=== PATIENT | male | born 1940 | race Caucasian/White ===

== ENCOUNTER → 2018-02-20 09:45 | Outpatient (CLI) | payer MEDICARE, OTHER, SELFPAY ==
--- NOTE | 2018-02-20 | DI.US.S_ITS ---
PROCEDURE: US THYROID INDICATIONS: disorder of thyroid TECHNIQUE: Real-time scanning was performed of the thyroid gland, with image documentation. COMPARISON: None. FINDINGS: Right: Thyroid lobe measures 6.1 x 3.7 x 4.5 cm, and is homogeneous in echotexture. Left: Thyroid lobe measures 4.0 x 1.8 x 1.6 cm, and is homogenous in echotexture. Isthmus: 1.1 mm thick. Nodule number: One Location: Right mid/inferior lobe Size: 29 x 38 x 40 mm Composition: Solid Echogenicity: Hypoechoic Shape: wider than tall. Margins: Smooth Echogenic foci: Macrocalcifications Total points: 5 ACR TI-RADS category: 4 Nodule number: 2 Location: Mid left lobe Size: 8 x 7 x 10 mm Composition: Solid Echogenicity: Isoechoic Shape: wider than tall. Margins: Smooth Echogenic foci: Punctate Total points: 5 ACR TI-RADS category: 4 IMPRESSION: 1. Overall appearance of enlarged heterogeneous thyroid which can be seen with goiter. 2. Focal lesions are identified in the right and left lobes as above. Both are TI-RADS 5. No priors are available for comparison. Recommend interval followup as below. ACR TI-RADS definitions and recommendations: TI-RADS 1 (benign): 0 points. FNA not needed. TI-RADS 2 (not suspicious): 2 points. FNA not needed. TI-RADS 3 (mildly suspicious): 3 points. * FNA if 2.5 cm or larger, follow up if 1.5 cm or larger (at 1, 3, and 5 years). TI-RADS 4 (moderately suspicious): 4-6 points. * FNA if 1.5 cm or larger, follow up if 1 cm or larger (at 1, 2, 3, and 5 years). TI-RADS 5 (highly suspicious): 7 points or more. * FNA if 1 cm or larger, follow up if 0.5 cm or larger (every year for 5 years). Dictated by: Melissa Yin M.D. on 02/20/2018 at 13:47 Approved by: Melissa Yin M.D. on 02/20/2018 at 13:51
== END ==
PROVIDERS: PCP Physician Assistant; Visit Provider Physician Assistant
DX: E04.2 Nontoxic multinodular goiter (principal)
CPT/HCPCS: 76536

== ENCOUNTER → 2018-03-01 13:35 | Outpatient (CLI) | payer MEDICARE, OTHER, SELFPAY ==
--- NOTE | 2018-03-01 | DI.US.S_ITS ---
PROCEDURE: US FINE NEEDLE ASPIRATION INDICATIONS: DISORDER OF THYROID TECHNIQUE: The indications, alternatives, benefits, risks, and complications of the procedure were explained to the patient. Written informed consent was obtained and placed in the chart. The thyroid region was examined sonographically and a site was chosen for ultrasound guided percutaneous sampling. The skin was prepared and draped in the usual fashion, and anesthetized with 1% lidocaine infiltrated from the skin down to the thyroid gland. Multiple passes were then performed, with contents emptied into an appropriate pathology specimen container. A bandage was applied to the area of access at completion of the study. COMPARISON: None. FINDINGS: The right lobe nodule was selected for FNA sampling. The small, posterior left lobe nodule is problematic by location and is borderline for sampling criteria. Location(s) of lesion(s) sampled: Right lobe nodule Alva: Initially 6 passes with 25 gauge needles and one 22 gauge needle with syringe aspiration were performed. Cellular clusters were considered inadequate therefore an additional 5 passes with 25 gauge needles were submitted. These were also reported as inadequate by the lab personnel therefore a 20 gauge Temno core sample was obtained from the right lobe nodule. Number of passes: 11 with 25 gauge needles; one with 22 gauge needle and syringe aspiration; one with 20 gauge Temno core sampling Medications: 1% lidocaine for local anaesthesia. Complications: None. IMPRESSION: Presumed successful ultrasound-guided thyroid nodule fine needle aspiration and core sampling, with histopathology results pending. Please see chart below for management recommendations based on cytology results. [facility] ReportingRecommendationsNon-diagnostic* Repeat US-guided FNA, with on-site cytology evaluation if possible. * Repeated non-diagnostic nodules without high suspicion US features: close observation vs surgical consult. * Consider surgery if nodule has high suspicion US features, grows >20% in 2 dimensions on followup, or patient has clinical risk factors for malignancy. Benign* If nodule has high suspicion US features: repeat US and FNA within 12 months. * If nodule has low to intermediate suspicion US features: repeat US at 12-24 months. If nodule grows (20% increase in at least 2 dimensions, with minimal increase of 2 mm or >50% change in volume), or development of new suspicious US features, then repeat FNA or continue followup. * If nodule has very low suspicion US features: followup US at >24 months. Atypia of undetermined significance, follicular lesion of undetermined significanceRepeat FNA, molecular testing, followup US, or surgical consult.Follicular neoplasm, suspicious for follicular neoplasmSurgical consult; also consider molecular testing. Suspicious for malignancySurgical consult.MalignantSurgical consult. Dictated by: Mayank Navarro M.D. on 03/01/2018 at 15:27 Approved by: Mayank Navarro M.D. on 03/01/2018 at 15:34
--- NOTE | 2018-03-01 | PATH_ITS ---
[facility] Accession Number: [id number] . 01 Material submitted: . RIGHT THYROID NODULE . 02 Diagnosis: Right Thyroid Nodule, Biopsy: No tissue in container. Please see comment. MRV/03/06/2018 . 02 Comment: There is no material on the slide and the submitted container was reexamined and is empty. Clinical correlation recommended. . 02 Electronically signed: . Cheri Swan MD, Pathologist NPI- [id number] . 01 Gross description: . Received one formalin-filled container labeled with the patient's name and designated right thyroid nodule. The specimen consists of a scant aggregate of mucoid material, which is filtered, wrapped and entirely submitted in one cassette. [place] [id number][place] /[facility] . 02 Pathologist provided ICD-10: E04.1 . 02 CPT . 027259 Performed at: 01 [facility] [address] [facility], [place], [place] [id number] MD Tres Givens MD Phone: [phone] Performed at: 02 [facility] [address] [place], [place] [id number] MD Luis Angel Knowles MD Phone: [phone]
== END ==
PROVIDERS: PCP Physician Assistant; Visit Provider Physician Assistant
DX: E04.2 Nontoxic multinodular goiter (principal)
CPT/HCPCS: 10022; 76942

== ENCOUNTER → 2018-08-19 14:07 | Outpatient (CLI) | payer MEDICARE, OTHER, SELFPAY ==
--- NOTE | 2018-08-19 | DI.US.S_ITS ---
PROCEDURE: US PERIPH VENOUS LOW EXTREM LT INDICATIONS: EDEMA TECHNIQUE: Real-time imaging, as well as color and pulse Doppler interrogation, were performed of the lower extremity deep veins from the inguinal ligament to the popliteal fossa. COMPARISON: None. FINDINGS: The deep veins are normally compressible, and free of intraluminal thrombus. Color and pulse Doppler demonstrate normal phasic intraluminal flow. There is normal augmentation response to distal compression maneuver. IMPRESSION: No evidence of DVT in visualized left lower extremity veins. Dictated by: Tito Dhillon M.D. on 08/19/2018 at 15:14 Approved by: Tito Dhillon M.D. on 08/19/2018 at 15:14
== END ==
PROVIDERS: PCP Physician Assistant; Visit Provider Physician Assistant
DX: R60.0 Localized edema (principal)
CPT/HCPCS: 93971

== ENCOUNTER 2018-09-05 13:37 | Day surgery (SDC) | payer MEDICARE, OTHER, SELFPAY ==
[2018-09-02 08:50] VITALS: BMI 26.3
[2018-09-05 13:57] VITALS: BP 167/66; PULSE 61; RESP 16; TEMP 36.7; O2SAT 96; BMI 26.3
[2018-09-05] MEDS: LACTATED RINGERS 1,000 ML 100 ML IV (14:20)
--- NOTE | 2018-09-05 14:32 | PM.PREOP ---
Pre-operative Note Interval Note History & Physical reviewed/Exam performed by Physician: Yes Changes to H&P: No
[2018-09-05] MEDS: MIDAZOLAM 2 MG/2 ML VIAL IV (14:59)
[2018-09-05] MEDS: CEFAZOLIN 2 GM/100 ML FROZ.PIGGY IV (15:06)
--- NOTE | 2018-09-05 15:25 | SUR.OPER ---
Supine on padded OR bed, head on pillow, arms secured on padded arm boards at <90 degrees abduction, legs uncrossed, safety belt at thigh, tape over blanket over lower legs.
[2018-09-05] MEDS: BUPIVACAINE 0.5% (PF) VIAL 30 ML INJ (15:29)
[2018-09-05] MEDS: LACTATED RINGERS 1,000 ML 42 ML IV (16:12)
--- NOTE | 2018-09-05 16:23 | PM.OP.1 ---
Operative Date/Time/Diagnoses Date of procedure: 09/05/18 Time of procedure: 16:23 Post-op diagnosis: same (indirect) Procedure & Clinicians Procedure: Repair with plug and patch technique Same procedure as scheduled: Yes Indications: Symptomatic right inguinal hernia Surgeon: Ravi Dixon Click Yes if Unassisted: Yes Anesthesia Type: General Operative Notes Findings: Large right inguinal hernia containing at least 2 ft or more of small bowel Closure Type: primary Specimen(s): none sent Implants & Drains: Mesh Estimated Blood Loss (mL): 10 Blood products transfused: none Procedure in detail: The patient was placed supine on the operating room table and underwent general LMA anesthesia. He was prepped and draped in the usual fashion. A transverse incision was made overlying the internal ring and carried down to the level of the external oblique. The external oblique was opened parallel with its fibers through the external ring. The cord structures were elevated. The cremaster was opened proximally and search made for an indirect sac. There was a large sac adjacent to the cord structures extended into the scrotum. It was opened proximally and dissected circumferentially. There was a large amount of small bowel within the sac which was easily reduced. Once I performed a circumferential dissection I amputated the sac leaving the distal portion in situ. Using a 2 0 silk I closed the sac in a pursestring technique and then over sewed the end with a running 200 silk suture. A large plug was placed in the defect created by the hernia. Was tacked into place with interrupted Ethibond suture and the cremaster was closed over with a a interrupted [id number] 3 0 Vicryl.. The floor was examined and was found to be weakened but intact. A patch was placed across the floor and tacked at the pubic tubercle, the posterior lamella of the anterior rectus sheath, the ilioinguinal ligament, and superior lateral to the cord. The opening was modified as necessary to prevent tight constriction of the cord. Sutures of 0 Tycron were used to secure the mesh. The external oblique was closed with a running 3 0 Vicryl. The subcu was closed with interrupted 4 0 Vicryl. The skin was closed with a running 4 0 Vicryl subcuticular stitch and Steri-Strips. Dressing was applied, the patient was awakened, and the patient was taken to the recovery area in good condition. Complications: none Condition: stable Disposition: PACU Plan for aftercare: Follow-up in office
[2018-09-05 16:29] VITALS: BP 155/73; PULSE 97; RESP 15; TEMP 36.6; O2SAT 95
[2018-09-05 16:34] VITALS: BP 157/67; PULSE 91; RESP 16; O2SAT 96
[2018-09-05 16:40] VITALS: BP 166/68; PULSE 85; RESP 16; O2SAT 96
[2018-09-05 16:57] VITALS: BP 178/80; PULSE 76; RESP 16; TEMP 36.6; O2SAT 97
[2018-09-05 17:34] VITALS: BP 155/70; PULSE 75; RESP 16; TEMP 37; O2SAT 95
== END 2018-09-05 18:13 | disposition home or self-care (01) ==
PROVIDERS: PCP Physician Assistant; Visit Provider Specialist
PROC: (CPT 49505; principal; 2018-09-05 14:45)
DX: K40.30 Unilateral inguinal hernia, with obstruction, without gangrene, not specified as recurrent (principal); Z79.01 Long term (current) use of anticoagulants; R01.1 Cardiac murmur, unspecified; I10 Essential (primary) hypertension; Z86.73 Personal history of transient ischemic attack (TIA), and cerebral infarction without residual deficits
CPT/HCPCS: 49505; C1781; J0690; J1100; J2250; J2405; J2704; J3010

== ENCOUNTER → 2020-05-22 11:17 | Outpatient (CLI) | payer MEDICARE, OTHER, SELFPAY ==
--- NOTE | 2020-05-22 11:18 | DI.RAD.S_ITS ---
PROCEDURE: XR ELBOW LT MIN 3V INDICATIONS: Left elbow pain, no trauma TECHNIQUE: 3 views of the elbow were acquired. COMPARISON: None. FINDINGS: Bones: No fractures or dislocations. There is mild osteophytosis. No suspicious bony lesions. Soft tissues: No definite elbow joint effusion. There are surgical clips within the volar soft tissues in the proximal forearm. IMPRESSION: 1. No fracture or dislocation. 2. Mild degenerative changes with mild osteophytosis. Dictated by: Tres Rankin M.D. on 05/22/2020 at 10:35 Approved by: Tres Rankin M.D. on 05/22/2020 at 10:38
== END ==
PROVIDERS: PCP Physician Assistant; Referring Provider Physician Assistant; Visit Provider Physician Assistant
DX: M25.522 Pain in left elbow (principal); M25.722 Osteophyte, left elbow
CPT/HCPCS: 73080

== ENCOUNTER → 2020-05-25 11:00 | Outpatient (ROUT) | payer MEDICARE, OTHER, SELFPAY ==
[2020-05-25 12:02] LABS: Add Manual Diff / Slide Review NO; Basophils Absolute Auto 0 /uL (0-100); Basophils Percent Auto 0.6 % (0-2); Eosinophils Absolute Auto 0 /uL (0-450); Eosinophils Percent Auto 0.7 % (2-4); Hematocrit 32.9 % (41-53); Lymphocytes Absolute Auto 900 /uL (1100-4500); Lymphocytes Percent Auto 17.4 % (25-40); Mean Corpuscular HGB Conc 33.5 % (30-36); Mean Corpuscular Hemoglobin 31.4 PG (26-34); Mean Corpuscular Volume 93.8 fL (80-100); Monocytes Absolute Auto 400 /uL (0-900); Monocytes Percent Auto 7.7 % (3-14); Neutrophils Absolute Auto 3900 /uL (1500-7000); Neutrophils Percent Auto 73.6 % (50-75); Platelet Count 135 X10^3/uL (150-400); Red Blood Cell Count 3.51 X10^6/uL (4.5-5.9); Red Cell Distribution Width 13.5 % (11.6-14.8); White Blood Cell Count 5.3 X10^3/uL (4.5-11.0)
[2020-05-25 12:04] LABS: Alanine Aminotransferase 22 IU/L (<50); Albumin 3.9 g/dL (3.5-5.0); Albumin Globulin Ratio 1.5 (1.0-2.8); Alkaline Phosphatase 76 U/L (38-126); Aspartate Aminotransferase 27 IU/L (17-59); BUN Creatinine Ratio 21.8 (6-22); Bilirubin Total 0.5 mg/dL (0.2-1.3); Blood Urea Nitrogen 31 mg/dL (9-20); C-Reactive Protein Quant 2.2 mg/dL (<1.0); Calcium 9.7 mg/dL (8.4-10.2); Carbon Dioxide 29 mmol/L (22-32); Chloride 107 mmol/L (98-107); Globulin 2.6 g/dL (1.7-4.1); Glucose 144 mg/dL (80-110); HEMOLYSIS < 15 (0-50); Potassium 3.7 mmol/L (3.4-5.1); Sodium 141 mmol/L (137-145); Total Protein 6.5 g/dL (6.3-8.2); Uric Acid 6.5 mg/dL (3.5-8.5)
[2020-05-25 12:05] LABS: Erythrocyte Sedimentation Rate 31 MM/HR (0-15)
== END ==
PROVIDERS: PCP Physician Assistant; Visit Provider Physician Assistant
DX: M25.422 Effusion, left elbow (principal)
CPT/HCPCS: 80053; 84550; 85025; 85651; 86140

== ENCOUNTER → 2020-09-17 09:03 | Outpatient (CLI) | payer MEDICARE, OTHER, SELFPAY ==
--- NOTE | 2020-09-17 | DI.ECHO.S_ITS ---
[facility]---------+ [facility] +---------+ : : [address] : [address] : : : : [id number] : : : : Phone: [phone]+ Echocardiogram Report + + :Name: ED MAYFIELD Study Date: 09/17/2020 Height: 71 in : :[facility] ReadingLocation: Weight: 175 lb : : Gender: Male BSA: 2.0 m2 : :: 1940 Age: 80 yrs BP: 153/80 mmHg: :Reason For Study: Edema : : Performed By: Isa Ramirez : :Referring: [place] : + + Interpretation Summary The left ventricle is normal in size. The ejection fraction is estimated to be 50-55%. The right ventricle is normal in size and function. The aortic valve is moderately calcified. There is mildly reduced leaflet mobility. There is no hemodynamically significant valvular aortic stenosis. There is mild mitral regurgitation. Compared to the prior echo study, there has been no change in the severity of mitral regurgitation. 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 4.0 cm in diameter. Previously it was 3.9 cm. Procedure: A two-dimensional transthoracic echocardiogram with color flow and Doppler was performed. The study quality was technically adequate. Comparison is made with the echocardiogram of 02/10/2018. The patient was in normal sinus rhythm during the exam. Left Ventricle: The left ventricle is normal in size. Proximal septal thickening is noted. There is no echo evidence for significant left ventricular outflow tract obstruction. There is no thrombus. The ejection fraction is estimated to be 50-55%. There is basal inferior wall hypokinesis. Compared to the prior exam, the left ventricular wall motion has not changed. MV E/A: 1.0 Med Peak E' Roamn: 5.1 cm/sec E/E' med: 16.2. Right Ventricle: The right ventricle is normal in size and function. Atria: The left atrium is severely dilated. The left atrium has remained unchanged in size since the prior echo exam. Right atrial size is normal. There is no Doppler evidence for an interatrial shunt. Mitral Valve: The mitral valve chordae are thickened and/or calcified. There is mild mitral annular calcification. There is mild mitral regurgitation. Compared to the prior echo study, there has been no change in the severity of mitral regurgitation. Aortic Valve: The aortic valve is moderately calcified. The aortic valve is trileaflet. There is mildly reduced leaflet mobility. The peak aortic velocity is 2.0 m/sec. The aortic valve mean gradient is 8.4 mmHg. The calculated aortic valve area is 1.8 cm2. There is no hemodynamically significant valvular aortic stenosis. There is trace aortic regurgitation. Compared to the prior echo study, there has been a decrease in the severity of aortic regurgitation. Tricuspid Valve: The tricuspid valve is normal in structure and function. Right ventricular systolic pressure is estimated to be 23 mmHg plus the clinically estimated CVP which cannot be estimated on this exam. There is trace tricuspid regurgitation. Pulmonic Valve: The pulmonic valve is not well visualized. There is trace pulmonic regurgitation. Great Vessels: The aortic root is normal size. 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 The aortic arch is normal in size. The inferior vena cava was not visualized. Pericardium/ Pleura There is no pericardial effusion. MMode/2D Measurements & Calculations LVIDd: 4.9 cm LVOT diam: 2.2 cm LVIDs: 4.3 cm Ao root diam: 3.4 cm FS: 12.9 % Aortic Jxn: 2.6 cm EPSS: 0.51 cm asc Aorta Diam: 4.0 cm IVSd: 1.4 cm Ao Arch Diam (Prox Trans): 2.3 cm LVPWd: 0.95 cm LV patton. diameter/BSA (cm/m^2): 2.5 LV sys. diameter/BSA (cm/m^2): 2.2 LA A2 area: 34.1 cm2 RA long axis: 5.6 cm LA A4 area: 25.7 cm2 RA area: 18.4 cm2 LA length (vol): 5.9 cm RA vol: 50.8 ml LA vol: 125.6 ml RA : 25.5 ml/m2 LA vol index: 63.0 ml/m2 RVD1 (basal): 3.8 cm RVD2 (mid): 2.9 cm TAPSE: 2.1 cm Doppler Measurements & Calculations Ao V2 max: 202.7 cm/sec LVOT Max Roman: 89.2 cm/sec Ao V2 mean: 136.2 cm/sec LV V1 max P.2 mmHg Ao max P.4 mmHg LV V1 VTI: 23.7 cm Ao mean P.4 mmHg MOSES(I,D): 1.8 cm2 Ao V2 VTI: 49.9 cm MOSES(V,D): 1.6 cm2 sev ratio: 0.47 MOSES indexed to BSA (cm^2/m^2): 0.89 AI P1/2t: 735.7 msec AI dec slope: 160.1 cm/sec2 MV E max roman: 81.6 cm/sec TR max roman: 238.6 cm/sec MV A max roman: 79.5 cm/sec TR max P.8 mmHg MV E/A: 1.0 PA V2 max: 101.6 cm/sec Med Peak E' Roman: 5.1 cm/sec PA V2 mean: 73.0 cm/sec E/E' med: 16.2 PA mean P.3 mmHg Lat Peak E' Roman: 6.7 cm/sec PA Accel Time: 0.13 sec E/E' lat: 12.1 E/e' average: 14.1 MV dec time: 0.17 sec MV P1/2t: 50.9 msec MV P1/2t max roman: 83.0 cm/sec SV(LVOT): 88.6 ml MVA(P1/2t): 4.3 cm2 Reading Physician:11:52 AM
== END ==
PROVIDERS: PCP Physician Assistant; Referring Provider Physician Assistant; Visit Provider Physician Assistant
DX: I34.0 Nonrheumatic mitral (valve) insufficiency (principal); I77.89 Other specified disorders of arteries and arterioles; R60.9 Edema, unspecified
CPT/HCPCS: 93306

== ENCOUNTER → 2021-08-29 11:12 | Outpatient (CLI) | payer MEDICARE, OTHER, SELFPAY ==
[2021-08-29 14:12] LABS: COVID19 -Nasal RAPID Negative (Negative)
== END ==
PROVIDERS: PCP Physician Assistant; Visit Provider Family Medicine Sleep Medicine
DX: Z20.822 Contact with and (suspected) exposure to COVID-19 (principal)
CPT/HCPCS: 87635; C9803

== ENCOUNTER → 2022-02-01 12:06 | Outpatient (CLI) | payer MEDICARE, OTHER, SELFPAY ==
--- NOTE | 2022-02-01 12:09 | DI.US.S_ITS ---
PROCEDURE: US THYROID INDICATIONS: Nontoxic single thyroid nodule TECHNIQUE: Real-time scanning was performed of the thyroid gland, with image documentation. COMPARISON: [facility], US, US THYROID, 02/20/2018, 10:36. FINDINGS: Right: Thyroid lobe measures 5.7 x 3.9 x 2.0 cm, and is homogeneous in echotexture. Left: Thyroid lobe measures 3.9 x 1.5 x 1.2 cm, and is homogenous in echotexture. Isthmus: 4.2 mm thick. Nodule number: 1 Location: Right inferior Size: 4.0 x 3.4 x 3.3 cm. Composition: Solid Echogenicity: Hypoechoic Shape: wider than tall. Margins: Smooth Echogenic foci: Macrocalcifications Total points: 5 ACR TI-RADS category: Moderately suspicious Nodule number: 2 Location: Left inferior Size: 1.3 x 0.1 x 1.3 cm. Composition: Solid Echogenicity: Hypoechoic Shape: wider than tall. Margins: Irregular Echogenic foci: None Total points: 6 ACR TI-RADS category: Moderately suspicious IMPRESSION: Thyroid nodule slightly increased in size compared to February 20, 2019. Based on size, imaging characteristics and criteria outlined below ultrasound-guided fine-needle aspiration nodule #1 and serial follow-up ultrasound of nodule #2 at 1, 2, 3 in 5 years is recommended. ACR TI-RADS definitions and recommendations: TI-RADS 1 (benign): 0 points. FNA not needed. TI-RADS 2 (not suspicious): 2 points. FNA not needed. TI-RADS 3 (mildly suspicious): 3 points. * FNA if 2.5 cm or larger, follow up if 1.5 cm or larger (at 1, 3, and 5 years). TI-RADS 4 (moderately suspicious): 4-6 points. * FNA if 1.5 cm or larger, follow up if 1 cm or larger (at 1, 2, 3, and 5 years). TI-RADS 5 (highly suspicious): 7 points or more. * FNA if 1 cm or larger, follow up if 0.5 cm or larger (every year for 5 years). Dictated by: Clementina Montoya MD, PhD on 02/01/2022 at 14:51 Approved by: Clementina Montoya MD, PhD on 02/01/2022 at 14:58
== END ==
PROVIDERS: PCP Physician Assistant; Referring Provider Physician Assistant; Visit Provider Physician Assistant
DX: E04.1 Nontoxic single thyroid nodule (principal)
CPT/HCPCS: 76536